=== PATIENT | male | born 1940 | race Caucasian/White ===

== ENCOUNTER 2016-04-10 11:38 | Outpatient (CLI) | payer MEDICARE ==
[2016-04-10 13:16] LABS: Anion Gap 13 mmol/L (10-20); BUN (Urea Nitrogen) 20 mg/dL (8.4-25.7); Calc. Creatinine Clearance 0 mL/min (70-130); Calcium 8.8 mg/dL (7.8-10.44); Carbon Dioxide 23 mmol/L (23-31); Chloride 111 mmol/L (98-107); Estimated GFR-MDRD 68; LDL Cholesterol, Calculated 110 mg/dL
== END 2016-04-10 11:39 | disposition home or self-care (01) ==
LOC: NAVSJIPCSP 11:38
PROVIDERS: ATTEND Internal Medicine
DX: I11.9 Hypertensive heart disease without heart failure (principal); E78.5 Hyperlipidemia, unspecified; Z79.899 Other long term (current) drug therapy
CPT/HCPCS: 36415; 80048; 80061

== ENCOUNTER 2016-07-10 10:46 | Outpatient (CLI) | payer MEDICARE ==
[2016-07-10 13:38] LABS: #Eosinphils 0.1 thou/uL (0.0-0.7); #Lymphocytes 1.5 thou/uL (1.20-3.40); #Monocytes 0.5 thou/uL (0.11-0.59); #Neutrophils 5.3 thou/uL (1.40-6.50); %Basophils 0.5 % (0.0-1.0); %Eosinophils 1.5 % (0.0-10.0); %Lymphocytes 20.6 % (21.0-51.0); %Monocytes 6.3 % (0.0-10.0); %Neutrophils 71.2 % (42.0-75.0); Hemoglobin 14.8 g/dL (14.0-18.0); Mean Corpuscular HGB CONC 33.2 g/dL (32.0-36.0); Mean Corpuscular Hemoglobin 31.2 pg (27.0-31.0); Mean Corpuscular Volume 93.8 fl (80.0-94.0); Mean Platelet Volume 6.5 fL (7.4-10.4); Platelet Count 174 thou/uL (130-400); RBC Distribution Width 12.1 % (11.5-14.5); Red Blood Cell (RBC) Count 4.73 mill/uL (4.70-6.10); White Blood Cell (WBC) Count 7.4 thou/uL (4.8-10.8)
[2016-07-10 13:54] LABS: Bilirubin Negative (Negative); Blood, Urine Negative (Negative); Clarity Cloudy (Clear); Glucose, Urine (Dipstick) Negative (Negative); Leukocyte Small (Negative); Nitrite Negative (Negative); Protein, Urine (Dipstick) Trace mg/dL (Neg-Trace); Urobilinogen 0.2 mg/dL (0.2-1.0)
[2016-07-10 14:02] LABS: ALT (SGPT) 41 U/L (0-55); AST (SGOT) 29 U/L (5-34); Albumin 4.2 g/dL (3.4-4.8); Alkaline Phosphatase 105 U/L (40-150); Anion Gap 15 mmol/L (10-20); BUN (Urea Nitrogen) 17 mg/dL (8.4-25.7); Bilirubin, Total 0.5 mg/dL (0.2-1.2); Calc. Creatinine Clearance 0 mL/min (70-130); Carbon Dioxide 22 mmol/L (23-31); Cardiac Risk 4.9 (Less than 4.5); Chloride 108 mmol/L (98-107); Cholesterol 157 mg/dL (< 200 Desired); Estimated GFR-MDRD 69; Globulin 2.7 g/dL (2.4-3.5); Glucose 113 mg/dL (83-110); HDL Cholesterol 32 mg/dL (>60 Neg Risk); LDL Cholesterol, Calculated 92 mg/dL; Potassium 4.2 mmol/L (3.5-5.1); Protein, Total 6.9 g/dL (5.8-8.1); Sodium 141 mmol/L (136-145); Triglycerides 166 mg/dL (Less than 150)
[2016-07-10 14:28] LABS: Specific Gravity, Urine 1.026 (1.002-1.036)
[2016-07-10 14:30] LABS: Bacteria/HPF None Seen HPF (None Seen); Crystals/HPF 4+ AMORPH URATES HPF (Negative); RBC/HPF None Seen HPF (0-3); Squamous Epithelial 0-3 HPF (0-3); WBC/HPF 0-3 HPF (0-3)
== END 2016-07-10 10:47 | disposition home or self-care (01) ==
LOC: NAVSJIPCSP 10:46
PROVIDERS: ATTEND Internal Medicine
DX: Z12.5 Encounter for screening for malignant neoplasm of prostate (principal); I11.9 Hypertensive heart disease without heart failure; E78.5 Hyperlipidemia, unspecified; Z79.899 Other long term (current) drug therapy
CPT/HCPCS: 36415; 80053; 80061; 81003; 81015; 85025; G0103

== ENCOUNTER 2016-10-09 09:43 | Outpatient (CLI) | payer MEDICARE, OTHER ==
[2016-10-09 12:40] LABS: Cardiac Risk 5.8 (Less than 4.5); Cholesterol 196 mg/dl (< 200 Desired); Glucose 108 mg/dL (83-110); HDL Cholesterol 34 mg/dL (>60 Neg Risk); LDL Cholesterol, Calculated 94 mg/dL; Triglycerides 342 mg/dL (Less than 150)
== END 2016-10-09 09:44 | disposition home or self-care (01) ==
LOC: NAVSJIPCSP 09:43
PROVIDERS: ATTEND Internal Medicine
DX: E78.5 Hyperlipidemia, unspecified (principal); I11.9 Hypertensive heart disease without heart failure; R73.01 Impaired fasting glucose
CPT/HCPCS: 36415; 80061; 82947

== ENCOUNTER 2017-08-08 09:22 | Outpatient (CLI) | payer MEDICARE | END 2017-08-08 09:23 | disposition home or self-care (01) | LOC: NAV ULT 09:22 | PROVIDERS: ATTEND Internal Medicine | DX: I07.1 Rheumatic tricuspid insufficiency (principal); I35.8 Other nonrheumatic aortic valve disorders | CPT/HCPCS: 93306 ==

== ENCOUNTER 2019-03-30 10:07 | Outpatient (CLI) | payer MEDICARE ==
--- NOTE | 2019-03-30 13:22 | CT ---
CT OF THE BRAIN WITHOUT CONTRAST: Date: 03/30/2019 COMPARISON: 10/21/14. HISTORY: Fall, hit head 6 months ago. Headaches. TECHNIQUE: Multiple contiguous axial images were obtained in a CT of the brain without contrast. 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 There is no evidence of hydrocephalus, intracranial hemorrhage, or extra-axial fluid collection. No large confluent infarcti on is seen. There is opacification of the left maxillary sinus with surrounding chronic sinus bony changes. The m astoid air cells are well aerated. IMPRESSION: 1. No evidence of acute intracranial abnormality. 2. Chronic left maxillary sinus disease. POS: CET
== END 2019-03-30 10:08 | disposition home or self-care (01) ==
LOC: NAV CT 10:07
PROVIDERS: ATTEND Internal Medicine
DX: R51 Headache (principal); J32.0 Chronic maxillary sinusitis
CPT/HCPCS: 70450

== ENCOUNTER 2020-08-11 07:43 | Outpatient (CLI) | payer MEDICARE | END 2020-08-11 07:44 | disposition home or self-care (01) | LOC: NAV CT 07:43 | PROVIDERS: ATTEND Internal Medicine | DX: R31.0 Gross hematuria (principal); N20.0 Calculus of kidney; N28.1 Cyst of kidney, acquired; K44.9 Diaphragmatic hernia without obstruction or gangrene; K76.0 Fatty (change of) liver, not elsewhere classified; K86.1 Other chronic pancreatitis | CPT/HCPCS: 74176 ==